=== PATIENT | female | born 1995 | race Caucasian/White ===

== ENCOUNTER 2018-09-09 06:15 | Inpatient (IN) ==
[2018-09-09] MEDS ORDERED: Naloxone 0.4 MG/ML INJ IVP PRN (06:38)
[2018-09-09] MEDS ORDERED: Famotidine 20 MG/2 ML VIAL IVP PRN (06:38)
[2018-09-09] MEDS ORDERED: Metoclopramide 10 MG/2 ML VIAL IVP PRN ×2 (06:38→11:09)
[2018-09-09] MEDS ORDERED: Ringers Solution, Lactated 1,000 ML IVC SCH (06:45)
[2018-09-09 06:57] LABS: Basophils % 0.2 %; Eosinophils # 0.1 K/mcL (0.0-0.6); Eosinophils % 0.5 %; Hematocrit 34.3 % (35.3-44.9); Hemoglobin 11.5 g/dL (11.5-15.4); Immature Granulocytes % 0.6 % (0-4); Lymphocytes # 1.8 K/mcL (0.6-4.6); Lymphocytes % 16.2 %; Mean Corpuscular HGB Conc 33.5 g/dL (31.6-35.5); Mean Corpuscular Hemoglobin 31.2 pg (28.0-33.3); Mean Platelet Volume 11.6 fL (9.4-12.4); Monocytes # 0.8 K/mcL (0.0-1.3); Monocytes % 7.1 %; Neutrophils # 8.5 K/mcL (1.6-8.9); Platelet Count 183 K/mcL (140-400); Red Blood Count 3.69 M/mcL (3.82-4.97); Segmented Neutrophils % 75.4 %
[2018-09-09 07:02] LABS: Amphetamine Screen,Urine Negative ng/mL (Cutoff=1000); Barbiturate Screen,Urine Negative ng/mL (Cutoff=200)
[2018-09-09 07:07] LABS: Benzodiazepines Screen,Urine Negative ng/mL (Cutoff=300); Cannabinoid Screen,Urine Negative ng/mL (Cutoff = 50); Cocaine Screen,Urine Negative ng/mL (Cutoff= 300); Opiate Screen,Urine Negative ng/mL (Cutoff=300); Phencyclidine Screen,Urine Negative ng/mL (Cutoff=25)
[2018-09-09] MEDS ORDERED: Lidocaine -MPF 1% 5 ML AMPUL ONE (07:17)
[2018-09-09] MEDS ORDERED: *HR* FentaNYL (PF) 100 MCG/2 ML VIAL ONE (07:17)
[2018-09-09] MEDS ORDERED: *HR* Morphine Sulfate/PF 10 MG/10 ML AMPUL ONE (07:17)
[2018-09-09] MEDS ORDERED: EPHEDrine 50 MG/ML VIAL ONE (07:19)
[2018-09-09] MEDS ORDERED: *HR* Oxytocin 10 UNIT/ML VIAL IM ONE ×2 (07:21→09:22)
[2018-09-09] MEDS ORDERED: cefOXitin 2,000 MG in 0.9 % Sodium Chloride Mini Bag 100 ML IVPB ONE (07:29)
--- NOTE | 2018-09-09 07:36 | History & Physical Report ---
Date of Encounter: 09/09/18 Time of Encounter: 07:35 24 Hour HP Update - Instructions Instructions: If the History and Physical is less than 30 days old and was completed prior to A.M. admission and or procedure and has NOT been updated on calendar day of procedure please complete this update prior to performing procedure. - Update Patient reports changes in Medical Condition: No Changes in examination, assessment, or condition: No Changes in Medication: No Preop tests/diagnostics Reviewed: Yes Surgery Remains Indicated: Yes Consent for Planned Operative Procedure(s) Verified: Yes - Pre-Operative Checklist Preoperative Checklist Indicated: Yes Prophylactic Antibiotic Ordered: Yes Home Medications Include Beta William: No Beta William Taken Today (Day of Surgery): No Beta William Taken Yesterday (Day Prior to Surgery): No Is VTE Prophylaxis Indicated?: Yes
--- NOTE | 2018-09-09 08:21 | Anesthesia Evaluation PreOp ---
Date of Encounter: 09/09/18 Time of Encounter: 07:05 - Past History Planned Operation: RCS Cardiac History: Denies any Significant Hx Pulmonary History: Denies Any Significant HX CRM FUNCTIONAL ANALYST History: Denies Any Significant HX Other Medical History: Denies Any Significant HX Anesthesia History: No Prior Anesthetic Complications : Yes Test: Positive Alcohol Use: none Drug use: none Medications and Allergies Vit/FA 1 tab PO DAILY 02/26/15 [History] Ferrous Sulfate 325 mg PO DAILY 08/11/18 [History] Allergy/AdvReac Type Severity Reaction Status Date / Time No Known Allergies Allergy Verified 08/22/18 18:52 - Meds/Allergy Pre-op Review Medications Reviewed: Yes Allergies Reviewed: Yes Beta Blockers on Current Med List: No Anesthesia Results - Labs 09/09/18 06:40 Anesthesia Exam 130/74 108 97% 16 Height: 1.6 Weight: 87.7kg NPO (# of Hours): mn Pain Scale: 0 - HEENT Pupil (Motor): Pupils equal Mallampati: II Teeth: Normal Oral Opening: Greater than 3 - CRM FUNCTIONAL ANALYST LOC: Oriented CRM FUNCTIONAL ANALYST Motor: Normal RUE, Normal LUE, Normal RLE, Normal LLE, Normal Face CRM FUNCTIONAL ANALYST Sensory: Normal: RUE, LUE, RLE, LLE, Face - Cardiac Rhythm: Regular Murmur: None JVD: No Carotid Bruit: No - Pulmonary Breath Sounds: bilateral Clear Respiratory Effort: Symmetrical Anesthesia Assess/Plan ASA Score: 2 Level of consciousness: Cooperative Anesthetic Plan: Spinal Monitoring Plan: Standard Monitors Recovery Plan: PACU
[2018-09-09] MEDS ORDERED: Albuterol 2.5 MG/3 ML NEBULIZER IH ONE (08:24)
[2018-09-09] MEDS ORDERED: Ondansetron 4 MG/2 ML VIAL IVP ONE (08:24)
[2018-09-09] MEDS ORDERED: Acetaminophen IV 1,000 MG/100 ML INFUS..BTL IVPB ONE (08:24)
[2018-09-09] MEDS ORDERED: *HR* Promethazine 25 MG/ML VIAL IVP PRN (08:24)
[2018-09-09] MEDS ORDERED: Ketorolac 30 MG/ML VIAL IVP ONE (08:24)
[2018-09-09] MEDS ORDERED: *HR* Nalbuphine 10 MG/ML AMPUL IV PRN (08:24)
[2018-09-09] MEDS ORDERED: Dexamethasone 4 MG/ML VIAL ONE (08:38)
[2018-09-09] MEDS ORDERED: Ondansetron 4 MG/2 ML VIAL ONE (08:38)
[2018-09-09] MEDS ORDERED: Ketorolac 30 MG/ML VIAL ONE (08:38)
--- NOTE | 2018-09-09 08:49 | Anesthesia Procedures ---
Addendum entered and electronically signed by Nelli Delgado CRNA 09/09/18 14:28: A Delivery Date: 09/09/18 Infant Delivery Time: 08:28 Original Note: Date of Encounter: 09/09/18 Time of Encounter: 07:50 Procedures: Anesthesia - Epidural/Spinal Patient ID/Chart reviewed: Yes Patient examined: Yes OB Eval: Gestational age: 39 OB Eval: : 2 OB Eval: Hx Para: 1 OB Eval: Contractions: Non-stressed pattern Consent Obtained: Yes Supplemental Oxygen: None/Room Air Site Prep: Aseptic Technique, Sterile prep and drape, Povidone-Iodine 1% Patient position: upright Amount of Local Anesthetic used: 3 Interspace Used: L4-L5 Blood: No CSF: Yes Paresthesia: Yes Spinal Needle Gauge: 22 Procedure: spinal dose bupivicaine 0.5% 2.2ml fentanyl 10mcg duramorph 0.3mg uneventful SAB Vitals + FHT's: stable throughout see nurisng notes
--- NOTE | 2018-09-09 09:38 | OB/GYN Procedure Note ---
Section - Date of procedure: 09/09/18 Preop diagnosis: desires repeat Post-op diagnosis: same (Bladder and omental adhesions) Procedure: repeat low transverse (With adhesiolysis) Surgeon: Jazmín Lovelace Blood Loss: 400 Was there an data control assistant present: No Personal Banking Officer: Nelli Delgado Anesthesia Type: Spinal section complications: none Disposition: L&D Recovery Room Specimens: Placenta, Cord segment - (s) A Infant Delivery Date: 09/09/18 Delivery Time: 08:28 Presentation: vertex Position: LOT Gender: Female Viability: Viable Pounds: 6 Ounces: 14 Gram Weight: 3.115 kg at 1 minute: 8 at 5 minutes: 9 Placenta: spontaneous, uterine exploration Cord: nuchal cord, 3 umbilical vessels, nuchal reduced - Narrative Narrative: The patient was taken to the operating room and given spinal anesthesia adequate for abdominal and pelvic surgery. She was prepped and draped in the usual sterile fashion. Timeout was completed. Anesthesia was tested to be adequate. A Pfannenstiel skin incision was made through the existing scar. The subcutaneous layer was sharply dissected down to the fascia. The fascia was incised in the midline and extended bilaterally. 2 straight Wake clamps were placed on the inferior fascial edge and the fascia was bluntly and sharply dissected away from the rectus muscles. This was repeated superiorly. The rectus muscles were bluntly dissected. Peritoneum was bluntly entered and then extended superiorly and inferiorly. Anterior vaginal wall had omental adhesions on the midline down to the bladder which were lysed. Good hemostasis noted. Thin adhesions of the bladder to the middle of the uterus were lysed with Metzenbaum scissors and reflected so that the bladder blade could be placed. The Bladder blade was then placed to protect the bladder. Vesicouterine peritoneum was incised and reflected inferiorly and the bladder blade was replaced to protect the bladder. A low transverse incision was then made through the lower uterine segment down to the amnion. This was bluntly extended bilaterally. The amnion was bluntly entered. This was followed by the vertex delivery of a viable and vigorous female infant weighing _6_#_14_oz with Apgars of 8/9. was placed on the maternal abdomen. The cord was clamped and cut after a delay. was handed to the nursery care team. The placenta was delivered spontaneous and intact then the uterine cavity was digitally palpated and wiped clean with a moist lap sponge. There were no placental remnants identified. Clamps were placed on the uterine angles, the cervix was dilated with ring forcep and discarded off the field. There was some mild uterine atony which did respond to IV Pitocin and uterine massage. The uterine incision was closed using 0 Vicryl suture in a running, locking fashion. A second imbricating layer completed the uterine closure with 0 Vicryl suture. Good hemostasis achieved. The pelvis was then irrigated with a copious amount of sterile water. Again, good hemostasis was identified. The ovaries and fallopian tubes were examined and noted to be grossly normal bilaterally. Gloves were changed. The peritoneal edges and rectus muscles were then examined and found to be hemostatic. The fascia was then closed using 0 PDS loop in a running nonlocking fashion. Subcutaneous tissue was irrigated with sterile water, good hemostasis was achieved. This layer was closed with O- stratastfix. The skin was then closed using a 4-0 Monocryl in a running subcuticular fashion. Dressing applied. Good hemostasis was noted. Estimated blood loss was 400cc. The Freeman was noted to be draining clear yellow urine at the end of the procedure. All sponge and instrument counts are correct at the end of the procedure. The patient was taken to the recovery room in stable condition.
[2018-09-09] MEDS ORDERED: Ondansetron 4 MG/2 ML VIAL IVP PRN (11:09)
[2018-09-09] MEDS ORDERED: Sennosides 8.6 MG TABLET PO PRN (11:09)
[2018-09-09] MEDS ORDERED: Oxytocin 20 units/ LR 1000 mL 20 UNIT/1,000 ML BAG IVC SCH (11:09)
[2018-09-09] MEDS: Ibuprofen 600 MG TABLET PO SCH (12:00)
--- NOTE | 2018-09-09 14:30 | Anesthesia Evaluation Post Op ---
Date of Encounter: 09/09/18 Time of Encounter: 11:00 - Vital Signs Vital Signs: Vital Signs/O2 Sat/Glucose, Most Current Temp Pulse Resp BP Pulse Ox 09/09/18 14:00 98.3 F 87 16 116/62 96 09/09/18 13:00 98.3 F 92 16 113/61 97 09/09/18 12:25 98.3 F 90 16 127/74 97 09/09/18 11:55 98.2 F 86 14 137/77 98 - Lungs Lungs: Clear Ascult./Percussion - Airway Airway: Non-obstructed - Cardiovascular Regular Rate - Mental Status Mental Status: Alert & Oriented, Answers Appropriately - Pain Pain Scale: 0 - Nausea Vomiting Nausea Vomiting: Not Present - Hydration Hydration: NPO, Freeman catheter - Discharge PostOp Status: Transfer Patient to floor
[2018-09-09] MEDS ORDERED: Acetaminophen 325 MG TABLET PO SCH (15:00)
[2018-09-10] MEDS: Ibuprofen 600 MG TABLET PO SCH ×2 (07:44→18:01)
[2018-09-10] MEDS: *HR* OxyCODONE Immed Rel 5 MG TABLET PO PRN ×2 (07:45→18:02)
[2018-09-10 07:47] LABS: Basophils % 0.2 %; Eosinophils % 0.4 %; Hemoglobin 10.6 g/dL (11.5-15.4); Immature Granulocytes % 0.4 % (0-4); Lymphocytes # 1.3 K/mcL (0.6-4.6); Lymphocytes % 11.6 %; Mean Corpuscular HGB Conc 33.1 g/dL (31.6-35.5); Mean Corpuscular Hemoglobin 30.5 pg (28.0-33.3); Mean Corpuscular Volume 92.2 fL (83.0-100.0); Monocytes # 0.7 K/mcL (0.0-1.3); Monocytes % 6.6 %; Platelet Count 138 K/mcL (140-400); Red Blood Count 3.47 M/mcL (3.82-4.97); Red Cell Distribution Width 14.2 % (11.5-14.5); Segmented Neutrophils % 80.8 %
[2018-09-10] MEDS: Prenatal Vit/FA 1 EACH TABLET PO SCH (08:40)
--- NOTE | 2018-09-10 11:12 | OB/GYN Progress Note ---
Date of Encounter: 09/10/18 Time of Encounter: 11:09 - Assessment and Plan (1) Status post delivery Current Visit: Yes Status: Acute Patient meeting day one milestones, ambulating in room. Pain well-controlled with prescribed medications. Voiding without difficulty, tolerating regular diet, bleeding light. No bowel movement yet. Anticipate discharge tomorrow. Options for control of Depo-Provera or Nexplanon discussed with patient. (2) Breast feeding status of mother Current Visit: Yes Status: Acute support as needed Patient states she needs a breast pump prescription Subjective - Subjective Principal diagnosis: Status post section Interval history: Date of procedure: 09/09/18 Preop diagnosis: desires repeat Post-op diagnosis: same (Bladder and omental adhesions) Procedure: repeat low transverse (With adhesiolysis) Surgeon: Jazmín Lovelace Blood Loss: 400 Was there an assistant finance manager present: Inez [employer] Recorder: Nelli Delgado Anesthesia Type: Spinal section complications: none Disposition: L&D Recovery Room Specimens: Placenta, Cord segment - (s) A Delivery Date: 09/09/18 Infant Delivery Time: 08:28 Presentation: vertex Position: LOT Gender: Female Viability: Viable Pounds: 6 Ounces: 14 Gram Weight: 3.115 kg at 1 minute: 8 at 5 minutes: 9 Placenta: spontaneous, uterine exploration Cord: nuchal cord, 3 umbilical vessels, nuchal reduced - Narrative Narrative: The patient was taken to the operating room and given spinal anesthesia adequate for abdominal and pelvic surgery. She was prepped and draped in the usual sterile fashion. Timeout was completed. Anesthesia was tested to be adequate. A Pfannenstiel skin incision was made through the existing scar. The subcutaneous layer was sharply dissected down to the fascia. The fascia was incised in the midline and extended bilaterally. 2 straight [place] clamps were placed on the inferior fascial edge and the fascia was bluntly and sharply dissected away from the rectus muscles. This was repeated superiorly. The rectus muscles were bluntly dissected. Peritoneum was bluntly entered and then extended superiorly and inferiorly. Anterior vaginal wall had omental adhesions on the midline down to the bladder which were lysed. Good hemostasis noted. Thin adhesions of the bladder to the middle of the uterus were lysed with Metzenbaum scissors and reflected so that the bladder blade could be placed. The Bladder blade was then placed to protect the bladder. Vesicouterine peritoneum was incised and reflected inferiorly and the bladder blade was replaced to protect the bladder. A low transverse incision was then made through the lower uterine segment down to the amnion. This was bluntly extended bilaterally. The amnion was bluntly entered. This was followed by the vertex delivery of a viable and vigorous female infant weighing _6_#_14_oz with Apgars of 8/9. Infant was placed on the maternal abdomen. The cord was clamped and cut after a delay. was handed to the nursery care team. The placenta was delivered spontaneous and intact then the uterine cavity was digitally palpated and wiped clean with a moist lap sponge. There were no placental remnants identified. Clamps were placed on the uterine angles, the cervix was dilated with ring forcep and discarded off the field. There was some mild uterine atony which did respond to IV Pitocin and uterine massage. The uterine incision was closed using 0 Vicryl suture in a running, locking fashion. A second imbri cating layer completed the uterine closure with 0 Vicryl suture. Good hemostasis achieved. The pelvis was then irrigated with a copious amount of sterile water. Again, good hemostasis was identified. The ovaries and fallopian tubes were examined and noted to be grossly normal bilaterally. Gloves were changed. The peritoneal edges and rectus muscles were then examined and found to be hemostatic. The fascia was then closed using 0 PDS loop in a running nonlocking fashion. Subcutaneous tissue was irrigated with sterile water, good hemostasis was achieved. This layer was closed with O- stratastfix. The skin was then closed using a 4-0 Monocryl in a running subcuticular fashion. Dressing applied. Good hemostasis was noted. Estimated blood loss was 400cc. The Freeman was noted to be draining clear yellow urine at the end of the procedure. All sponge and instrument counts are correct at the end of the procedure. The patient was taken to the recovery room in stable condition. Patient reports: appetite normal, voiding normally, pain well controlled, ambulating normally [place]: doing well, nursing well Objective - Vital Signs Latest vital signs: Vital Signs Temp Pulse Resp BP Pulse Ox 09/10/18 09:05 98.2 F 89 16 116/75 09/10/18 03:50 98.4 F 81 14 114/69 98 09/10/18 01:00 98.7 F 89 14 97/59 98 09/09/18 21:45 98.2 F 85 16 105/58 97 09/09/18 15:00 98.2 F 90 16 113/64 09/09/18 14:00 98.3 F 87 16 116/62 96 09/09/18 13:00 98.3 F 92 16 113/61 97 09/09/18 12:25 98.3 F 90 16 127/74 97 09/09/18 11:55 98.2 F 86 14 137/77 98 Intake and Output 09/09/18 09/10/18 09/10/18 23:59 07:59 15:59 Intake Total 240 / 240 120 / 120 Output Total 425 / 425 700 / 700 Balance -185 / -185 -580 / -580 Intake: Oral 240 / 240 120 / 120 Output: Urine 700 / 700 Catheter 425 / 425 Other: Meal Breakfast Percent of Meal Consumed 20% Weight 85.23 kg Patient Weight 09/10/18 23:59 Weight 85.23 kg - Exam Lungs: bilateral: normal Chest: Normal S1, Normal S2 Extremities: Present: normal Abdomen: Present: normal appearance, soft, gravid Incision: Present: normal, dressed (dermabond) Uterus: Present: normal, firm Fundal Height: 0 (@u) - Labs Labs: Laboratory Results - last 24 hr 09/10/18 07:32 WBC 11.1 RBC 3.47 L Hgb 10.6 L Hct 32.0 L MCV 92.2 MCH 30.5 MCHC 33.1 RDW 14.2 Plt Count 138 L MPV 11.0 Immature Gran % 0.4 Seg Neutrophils % 80.8 Lymphocytes % 11.6 Monocytes % 6.6 Eosinophils % 0.4 Basophils % 0.2 Neutrophils # 9.0 H Lymphocytes # 1.3 Monocytes # 0.7 Eosinophils # 0.0 Basophils # 0.0
[2018-09-10] MEDS: Simethicone 80 MG TAB.CHEW PO PRN (19:47)
[2018-09-10] MEDS ORDERED: Lanolin 7 G OINT...G. TP PRN (22:47)
[2018-09-11 08:07] VITALS: BP 124/87
[2018-09-11] MEDS: Ibuprofen 600 MG TABLET PO SCH (08:31)
[2018-09-11] MEDS: Prenatal Vit/FA 1 EACH TABLET PO SCH (08:31)
[2018-09-11] MEDS: Simethicone 80 MG TAB.CHEW PO PRN (08:32)
--- NOTE | 2018-09-11 10:32 | Discharge Summary ---
Date of Encounter: 09/11/18 Time of Encounter: 10:29 - Discharge Diagnosis (1) Status post delivery Priority: Primary Status: Acute Comments: Pt states feels well, pain well managed on po pain medication, tolerates po, passing flatus - Discharge Medications Prescriptions: New Breast Pump [BREAST PUMP] 1 each .ROUTE AD #1 each OxyCODONE/APAP 5/325 [Percocet 5/325 MG] 1 each PO Q4HR PRN 5 Days #20 tablet PRN Reason: Pain Ibuprofen [Motrin] 600 mg PO Q6HR #60 tablet Acetaminophen [Tylenol] 650 mg PO Q6H #0 tablet Docusate [Colace] 100 mg PO BID #60 capsule Lanolin [Lansinoh] 1 appl TP TID PRN oint...g. PRN Reason: nipple pain Simethicone [Gas-X] 80 mg PO TID PRN tab.chew PRN Reason: Dyspepsia Continue Vit/FA 1 tab PO DAILY Discontinued Ferrous Sulfate 325 mg PO DAILY Home Medications: Vit/FA 1 tab PO DAILY 02/26/15 [History] Breast Pump [BREAST PUMP] 1 each .ROUTE AD #1 each 09/10/18 [Rx] Acetaminophen [Tylenol] 650 mg PO Q6H #0 tablet 09/11/18 [Rx] Breast Pump [BREAST PUMP] 1 each .ROUTE AD #1 each 09/11/18 [Rx] Docusate [Colace] 100 mg PO BID #60 capsule 09/11/18 [Rx] Ibuprofen [Motrin] 600 mg PO Q6HR #60 tablet 09/11/18 [Rx] Lanolin [Lansinoh] 1 appl TP TID PRN oint...g. 09/11/18 [Rx] OxyCODONE/APAP 5/325 [Percocet 5/325 MG] 1 each PO Q4HR PRN 5 Days #20 tablet 09/11/18 [Rx] Simethicone [Gas-X] 80 mg PO TID PRN tab.chew 09/11/18 [Rx] Allergies/Adverse Reactions: Allergy/AdvReac Type Severity Reaction Status Date / Time No Known Allergies Allergy Verified 08/22/18 18:52 Data Procedures and tests throughout hospitalization: Laboratory Tests 03/29/19 03/29/19 03/30/19 06:40 06:40 07:32 WBC 11.3 H 11.1 RBC 3.69 L 3.47 L Hgb 11.5 10.6 L Hct 34.3 L 32.0 L MCV 93.0 92.2 MCH 31.2 30.5 MCHC 33.5 33.1 RDW 14.0 14.2 Plt Count 183 138 L MPV 11.6 11.0 Immature Gran % 0.6 0.4 Seg Neutrophils % 75.4 80.8 Lymphocytes % 16.2 11.6 Monocytes % 7.1 6.6 Eosinophils % 0.5 0.4 Basophils % 0.2 0.2 Neutrophils # 8.5 9.0 H Lymphocytes # 1.8 1.3 Monocytes # 0.8 0.7 Eosinophils # 0.1 0.0 Basophils # 0.0 0.0 Urine Opiates Screen Negative Ur Barbiturates Screen Negative Ur Phencyclidine Scrn Negative Ur Amphetamines Screen Negative U Benzodiazepines Scrn Negative Urine Cocaine Screen Negative U Marijuana (THC) Screen Negative Ur Drug Screen Interp See Below Date of admission: 09/09/18 06:15 Primary care physician: PCP NONE Discharging clinician: Lidia Jeter Anticipated date of discharge: 09/11/18 - Patient Status Disposition: Home, Self-Care Condition: Good Functional capacity at discharge: independent ambulation Overall status at discharge: patient is progressing back to baseline - Discharge Instructions Follow Up With: NONE,PCP [Primary Care Provider] - Jazmín Peraza MD [Partnered Physician] - - Diet and Activity Activity: resume usual activities as tolerated Diet: regular diet Hospital Course Reason for admission: section Delivery: section Episiotomy: none Laceration: none Other procedures: tubal ligation complications: none Discharge diagnosis: IUP at term delivered [place] baby: female Hospital course: Section - Date of procedure: 09/09/18 Preop diagnosis: desires repeat Post-op diagnosis: same (Bladder and omental adhesions) Procedure: repeat low transverse (With adhesiolysis) Surgeon: Jazmín Peraza Quantitated Blood Loss: 400 Was there an accounting assistant present: Inez Neuro Ophthalmologist: Nelli Delgado Anesthesia Type: Spinal section complications: none Disposition: L&D Recovery Room Specimens: Placenta, Cord segment - (s) A Infant Delivery Date: 09/09/18 Delivery Time: 08:28 Presentation: vertex Position: LOT Gender: Female Viability: Viable Pounds: 6 Ounces: 14 Gram Weight: 3.115 kg at 1 minute: 8 at 5 minutes: 9 Placenta: spontaneous, uterine exploration Cord: nuchal cord, 3 umbilical vessels, nuchal reduced Stable in PP and appropriate for discharge, OARRS reviewed Time Attestation: Total time spent providing and/or coordinating discharge services: - VTE Reasons for not Prescribing Prophylaxis: Treatment not Indicated - Low risk for VTE Documentation of Mechanical Device: Intermittent pneumatic compression device Exam - Constitutional Vitals: Temp Pulse Resp BP Pulse Ox 99.4 F 92 16 124/87 95 09/11/18 08:05 09/11/18 08:05 09/11/18 08:05 09/11/18 08:05 09/11/18 08:05 General appearance IM: A&O X 3 - Respiratory Respiratory exam: Present: CTAB - Cardiovascular Cardiovascular exam IM: Present: +S1, +S2 - GI/Abdominal GI/Abdominal exam IM: soft Incision: normal, intact - Uterine Tone: Firm Uterus Position: 2 Fingers Below Umbilicus - Extremities Exam Extremities exam IM: Present: normal capillary refill, normal inspection - Neurological Exam Neurological exam: alert, normal gait, oriented X3 - Psychiatric Additional comments: reports good mood
== END 2018-09-11 13:32 | disposition home or self-care (01) | DRG 788 ==
LOC: 1NENULAB 06:15 → EDSTATUS 08:15 → 1NENUOBS 09:03
PROVIDERS: ADMIT Obstetrics & Gynecology; ATTEND Obstetrics & Gynecology